=== PATIENT | female | born 1950 | race Caucasian/White ===

== ENCOUNTER 2020-07-07 08:41 | Day surgery (SDC) | payer BC, MEDICARE ==
[~2020-07-07 08:41] MED LIST: Lactated Ringers 1,000 ML IV SCH
[2020-07-07] MEDS ORDERED: Propofol 200 MG/20 ML SDV ONE ×3 (09:52→10:27)
[2020-07-07 11:26] VITALS: BP 164/96; PULSE 61
--- NOTE | 2020-07-07 14:13 | OR ---
DATE OF SURGERY: 07/07/2020. REFERRING PROVIDER: Jayne Ortiz MD PRE-OPERATIVE DIAGNOSES: History of colon polyps. Last colonoscopy was 01/2015. There is no family history of colon cancer. Of note, patient only held her Plavix and aspirin for 3 days. POST-OPERATIVE DIAGNOSES: 1. One tiny polyp measuring 2 mm in size at 60 cm from the anal verge was removed using cold forceps. 2. Significant sigmoid diverticulosis. 3. Tortuous colon. PROCEDURE: Colonoscopy with polypectomy x1 using cold forceps. SURGEON: Ben Lewis M.D. ANESTHESIA: Monitored anesthesia care. BOWEL PREP: Fair. Alisha is a 70-year-old female who was brought to the endoscopy suite after discussing risks and benefits of the procedure. Informed consent was obtained for conscious sedation and colonoscopy with or without biopsy and/or polypectomy. We also discussed possibility of missed lesions. Pre-procedure exam was unremarkable. IV, oxygen, and monitors were placed. The patient was placed in the left lateral decubitus position. Sedation was administered and a digital rectal exam was performed and remarkable for some mild external hemorrhoidal skin tags. No acute inflammation noted. Colonoscope was passed into the rectum and slowly advanced all the way to the cecum. The patient did have a very tortuous colon requiring quite a bit of maneuvering as well as abdominal pressure. Cecum was viewed and photographed. The colonoscope was slowly withdrawn and the mucosa was closed observed in a direct circumferential manner. The ascending colon was unremarkable. The transverse colon was remarkable for 2 mm polyp at 60 cm removed using cold forceps. I suspect this was near splenic flexure. The descending colon revealed some mild diverticulosis. The sigmoid colon revealed significant diverticulosis and was quite tortuous. Retroflexion was performed and rectal mucosa was unremarkable. Scope was removed. The patient tolerated the procedure well. The patient was monitored until that baseline status. Discharge instructions were reviewed and the patient was discharged in good condition. COMPLICATIONS: None. TOTAL TIME: 40 minutes. ESTIMATED BLOOD LOSS: Nil. RECOMMENDATIONS/FOLLOW-UP: We will await results of path report to determine ideal followup interval. There was only a very tiny polyp that we removed. The patient is okay to resume her aspirin and Plavix tomorrow. There was no significant bleeding from the polypectomy site. I would like to kindly thank Dr. Ortiz for this referral. DMB: 07/07/2020 11:57:23 MODL: 07/07/2020 13:20:59 /[id number]
== END 2020-07-07 12:10 | disposition home or self-care (01) ==
LOC: VM.SDS 08:41
PROVIDERS: ATTEND Family Medicine
DX: Z12.11 Encounter for screening for malignant neoplasm of colon (principal); K63.5 Polyp of colon; K57.30 Diverticulosis of large intestine without perforation or abscess without bleeding; I10 Essential (primary) hypertension; I25.10 Atherosclerotic heart disease of native coronary artery without angina pectoris; J86.9 Pyothorax without fistula; E78.00 Pure hypercholesterolemia, unspecified; E55.9 Vitamin D deficiency, unspecified; F17.210 Nicotine dependence, cigarettes, uncomplicated; Z01.812 Encounter for preprocedural laboratory examination; Z98.890 Other specified postprocedural states; Z95.5 Presence of coronary angioplasty implant and graft; Z79.899 Other long term (current) drug therapy; Z20.828 Contact with and (suspected) exposure to other viral communicable diseases
CPT/HCPCS: 00812; J2704; J7120; U0002

== ENCOUNTER 2020-12-04 11:28 | Emergency (ER) | payer BC, MEDICARE ==
[2020-12-04] MEDS ORDERED: Sodium Chloride 0.9% 500 ML IV ONE ×2 (11:57→12:04)
[2020-12-04 12:32] LABS: CHLORIDE,CL 100 mmol/L (98-107); SODIUM,NA 136 mmol/L (136-145)
[2020-12-04 12:33] LABS: PTT,PARTIAL THROMBOPLSTIN TIME 24.7 SEC (25.6-32.8)
[2020-12-04 12:38] LABS: ANION GAP 14.5 mmol/L (5-15)
--- NOTE | 2020-12-04 14:00 | EDM.PDOC ---
ED HPI GENERAL MEDICAL PROBLEM - General Chief Complaint: General Stated Complaint: syncope Time Seen by Provider: 12/04/20 11:35 Source of Information: Reports: Patient History Limitations: Reports: No Limitations - History of Present Illness INITIAL COMMENTS - FREE TEXT/NARRATIVE: Pt. presents to ER via EMS following a syncopal episode. Pt. states that she was in [employer] when this happened. Pt. denies any chest pain, shortness of breath, lightheadedness, nausea, vomiting, or diarrhea prior to the accident. Pt. states that she did not get a good night sleep last night. She states that she does not drink a lot of water, instead consuming primarily coffee. Pt. denies any headache, problems with speech or ambulation, fever, chills, numbness/tingling in extremities. EMS did start an IV and it was mostly infused on arrival to ER. Onset: Today Treatments [employer]NAGER: Reports: EKG, IV/IO - Related Data Allergies Allergy/AdvReac Type Severity Reaction Status Date / Time No Known Allergies Allergy Verified 12/04/20 11:40 Home Meds: Home Meds Ascorbate Calcium [Vitamin C] 500 mg PO BID 01/11/15 [History] Aspirin [Adult Low Dose Aspirin EC] 81 mg PO DAILY 01/11/15 [History] Calcium Carbonate/Vitamin D3 [Calcium 500 + Vit D 200 Tablet] 2 tab PO DAILY 01/11/15 [History] Cholecalciferol (Vitamin D3) [Vitamin D] 1,000 unit PO DAILY 01/11/15 [History] Lisinopril 20 mg PO DAILY 01/11/15 [History] Metoprolol Succinate [Toprol XL] 25 mg PO DAILY 01/11/15 [History] Multivitamin [Daily Vitamin] 1 each PO DAILY 01/11/15 [History] Clopidogrel Bisulfate [Plavix] 75 mg PO DAILY 06/03/20 [History] Fish Oil/Donnelly-3 Fatty Acids [Fish Oil 1,000 MG] 1 each PO DAILY 06/03/20 [History] Nitroglycerin [Nitrostat] 0.4 mg SL ASDIRECTED 06/03/20 [History] atorvaSTATin Calcium [Lipitor] 40 mg PO DAILY 06/03/20 [History] Past Medical History HEENT History: Reports: Cataract Cardiovascular History: Reports: CAD, High Cholesterol, Hypertension, Other (See Below) Other Cardiovascular History: varicose veins Respiratory History: Reports: Other (See Below) Other Respiratory History: dyspnea on exertion, panlobular emphysema Gastrointestinal History: Reports: Colon Polyp, Diverticulosis Genitourinary History: Reports: Other (See Below) Other Genitourinary History: vagnial enterocele Musculoskeletal History: Reports: Other (See Below) Other Musculoskeletal History: osteopenia, bilateral bunions, neck pain, macromastia Psychiatric History: Reports: Other (See Below) Other Psychiatric History: smoker, nicotine dependence Endocrine/Metabolic History: Reports: Vitamin D Deficiency - Infectious Disease History Infectious Disease History: Reports: None - Past Surgical History HEENT Surgical History: Reports: Cataract Surgery Cardiovascular Surgical History: Reports: Coronary Artery Stent GI Surgical History: Reports: Colonoscopy Social & Family History - Tobacco Use Tobacco Use Status *Q: Current Every Day Tobacco User Years of Tobacco use: 50 Packs/Tins Daily: 0.5 ED ROS GENERAL - Review of Systems Review Of Systems: See Below Constitutional: Reports: No Symptoms. Denies: Fever, Chills, Malaise, Fatigue HEENT: Reports: No Symptoms Respiratory: Reports: No Symptoms Cardiovascular: Reports: Syncope. Denies: Chest Pain, Dyspnea on Exertion, Edema, Palpitations, PND Endocrine: Reports: Fatigue (States did not get a full night sleep last night.) GI/Abdominal: Reports: No Symptoms : Reports: No Symptoms Musculoskeletal: Reports: No Symptoms Skin: Reports: No Symptoms Neurological: Reports: No Symptoms Psychiatric: Reports: No Symptoms Hematologic/Lymphatic: Reports: No Symptoms Immunologic: Reports: No Symptoms ED EXAM, GENERAL - Physical Exam Exam: See Below Exam Limited By: No Limitations General Appearance: Alert, WD/WN, No Apparent Distress Eye Exam: Bilateral Eye: EOMI, PERRL Throat/Mouth: Normal Inspection, Normal Lips, Normal Teeth, Normal Oropharynx, Normal Voice, No Airway Compromise Head: Atraumatic, Normocephalic Neck: Normal Inspection, Supple, Non-Tender Respiratory/Chest: No Respiratory Distress, Lungs Clear, Normal Breath Sounds, No Accessory Muscle Use, Chest Non-Tender Cardiovascular: Normal Peripheral Pulses, Regular Rate, Rhythm, No Edema, No JVD Peripheral Pulses: 4+: Radial (L) GI/Abdominal: Soft, Non-Tender, No Distention, No Mass (Female) Exam: Deferred Rectal (Female) Exam: Deferred Back Exam: Normal Inspection, Full Range of Motion Extremities: Normal Inspection, Normal Range of Motion, Non-Tender, No Pedal Edema, Normal Capillary Refill Neurological: Alert, Oriented, CN II-XII Intact, Normal Cognition, Normal Gait, Normal Reflexes, No Motor/Sensory Deficits, Other (No pronator drift. No lower extremity drift. No facial asymmetry. Speech is fluent. Denies vision loss or change. No current vertigo or lightheadedness.) Psychiatric: Normal Affect, Normal Mood Skin Exam: Warm, Dry, Intact, Normal Color, No Rash Lymphatic: No Adenopathy #1 Interpretation Rhythm: NSR [place]: Normal P-Wave: Present QRS: Normal ST-T: Normal QT: Normal Course - Vital Signs Last Recorded V/S: Last Vital Signs Temp 37.1 C 12/04/20 11:30 Pulse 74 12/04/20 12:30 Resp 16 12/04/20 12:30 BP 138/72 12/04/20 12:30 Pulse Ox 99 12/04/20 12:30 - Orders/Labs/Meds Labs: Laboratory Tests 12/04/20 12/04/20 12/04/20 Range/Units 12:03 12:03 12:03 WBC 7.0 (4.0-10.0) x10^3/uL RBC 3.64 L (4.00-5.50) x10^6/uL Hgb 11.9 L (12.0-16.0) g/dL Hct 34.9 (33.0-47.0) % MCV 95.9 H (78.0-93.0) fL MCH 32.7 H (26.0-32.0) pg MCHC 34.1 (32.0-36.0) g/dL RDW Coeff of Nithya 13.0 (10.0-15.0) % Plt Count 186 (130-400) x10^3/uL Neut % (Auto) 77.6 (50.0-80.0) % Lymph % (Auto) 16.2 L (25.0-50.0) % [place] % (Auto) 6.1 (2.0-11.0) % Eos % (Auto) 0.0 (0.0-4.0) % Baso % (Auto) 0.1 L (0.2-1.2) % PT 10.9 (9.9-12.5) SEC INR 1.0 L (2.0-3.5) APTT 24.7 L (25.6-32.8) SEC Sodium 136 (136-145) mmol/L Potassium 3.5 (3.5-5.1) mmol/L Chloride 100 (98-107) mmol/L Carbon Dioxide 25 (21-32) mmol/L Anion Gap 14.5 (5-15) mmol/L BUN 13 (7-18) mg/dL Creatinine 0.8 (0.55-1.02) mg/dL Est Cr Clr Drug Dosing 52.58 mL/min Estimated GFR (MDRD) > 60 Glucose 99 (70-99) mg/dL Calcium 8.3 L (8.5-10.1) mg/dL Corrected Calcium 8.86 (8.5-10.1) mg/dL Magnesium 1.5 L (1.8-2.4) mg/dL Total Bilirubin 0.6 (0.2-1.0) mg/dL AST 15 (15-37) U/L ALT 18 (14-59) U/L Alkaline Phosphatase 75 (46-116) U/L Troponin I High Sens 7 (<=51) ng/L Total Protein 6.8 (6.4-8.2) g/dL Albumin 3.3 L (3.4-5.0) g/dL Globulin 3.5 Albumin/Globulin Ratio 0.94 Meds: Medications Discontinued Medications Generic Name Dose Route Start Last Admin Trade Name Freq PRN Reason Stop Dose Admin Sodium Chloride 500 mls @ 999 mls/hr 12/04/20 11:57 12/04/20 12:05 Normal Saline IV 12/04/20 12:27 999 mls/hr ONETIME ONE Administration Sodium Chloride 500 mls @ 999 mls/hr 12/04/20 12:04 12/04/20 12:05 Normal Saline IV 12/04/20 12:34 Not Given ONETIME ONE Departure - Departure Time of Disposition: 13:30 Disposition: Home, Self-Care 01 Clinical Impression: Syncope, Hypomagnesemia - Discharge Information Instructions: Hypomagnesemia, Syncope, [id number] Referrals: Jayne Ortiz MD [Primary Care Provider] - Forms: ED Department Discharge Additional Instructions: Drink plenty of fluids. Limit consumption of coffee/caffeine. Start Slo Mag 64 twice daily Recheck in clinic in 10-14 days. Return to ER if you have any chest pain, shortness of breath, or decreased level of consciousness. Sepsis Event Note (ED) - Evaluation Sepsis Screening Result: No Definite Risk - Focused Exam Vital Signs: Vital Signs Temp Pulse Resp BP Pulse Ox 12/04/20 12:30 74 16 138/72 99 12/04/20 11:30 37.1 C 80 16 125/74 96 - Assessment/Plan Plan: Drink plenty of fluids. Limit consumption of coffee/caffeine. Start Slo Mag 64 twice daily Recheck in clinic in 10-14 days. Return to ER if you have any chest pain, shortness of breath, or decreased level of consciousness.
[2020-12-04 14:34] VITALS: BP 138/72; PULSE 74
== END 2020-12-04 13:15 | disposition home or self-care (01) ==
LOC: VM.ED 11:28
DX: R55 Syncope and collapse (principal); E83.42 Hypomagnesemia; I25.10 Atherosclerotic heart disease of native coronary artery without angina pectoris; E78.00 Pure hypercholesterolemia, unspecified; I10 Essential (primary) hypertension; Z79.82 Long term (current) use of aspirin; Z79.02 Long term (current) use of antithrombotics/antiplatelets; Z79.899 Other long term (current) drug therapy; Z72.0 Tobacco use
CPT/HCPCS: 36415; 80053; 83735; 84484; 85025; 85610; 85730; 93010; 99284; J7030